=== PATIENT | female | born 1995 | race Caucasian/White ===

== ENCOUNTER 2017-12-28 15:51 | Emergency (ER) | payer OTHER ==
[2017-12-28 16:11] LABS: PLATELET COUNT 297 10^3/uL (150-400)
--- NOTE | 2017-12-28 16:21 | EDPHY ---
H & P Stated Complaint: urology procedure today, at home felt weak/dizzy/near syncope Time Seen by Provider: 12/28/17 16:18 HPI/ROS: CHIEF COMPLAINT: Near syncope HISTORY OF PRESENT ILLNESS: 22-year-old female presents after a near syncopal episode. She had a urologic procedure this morning. She arrived home and was sitting in her room when she began to feel dizzy and weak. Followed by the rapid breathing and a rapid heart rate. The symptoms lasted several minutes and then completely resolved. She is currently asymptomatic. No prior similar symptoms. REVIEW OF SYSTEMS: complete 10 point ROS reviewed and is negative except for the noted elements in the HPI - Medical/Surgical History Hx Asthma: No Hx Chronic Respiratory Disease: No Hx Diabetes: No Hx Cardiac Disease: No Hx Renal Disease: No Hx Cirrhosis: No Hx Alcoholism: No Hx HIV/AIDS: No Hx Splenectomy or Spleen Trauma: No Other PMH: tonsillectomy, narrowed urethra - Social History Smoking Status: Never smoked - Physical Exam Exam: General Appearance: Alert, pleasant Eyes: Pupils equal and round, no conjunctival pallor ENT, Mouth: Mucous membranes moist Neck: Normal inspection Respiratory: Lungs are clear to auscultation Cardiovascular: Regular rate and rhythm Gastrointestinal: Abdomen is soft and nontender Neurological: A&O, nonfocal, normal gait Skin: Warm and dry, no rash Extremities: Nontender, no pedal edema Psychiatric: Mood and affect normal Constitutional: Initial Vital Signs Temperature (C) 37.2 C 12/28/17 15:54 Heart Rate 83 12/28/17 15:54 Respiratory Rate 16 12/28/17 15:54 Blood Pressure 149/91 H 12/28/17 15:54 O2 Sat (%) 97 12/28/17 15:54 O2 Delivery Mode Room Air Allergies/Adverse Reactions: No Known Allergies Allergy (Unverified 12/28/17 15:58) Home Medications: Medication Instructions Recorded NK [No Known Home Meds] 12/28/17 Medical Decision Making - Diagnostics EKG Interpretation: EKG interpreted by me reveals normal sinus rhythm, rate 89, T-wave inversions in leads III and AVF. Interpretation: borderline EKG ED Course/Re-evaluation: This patient presents after a near syncopal episode, most likely vasovagal in nature. I considered primary dysrhythmia, though she was asymptomatic prior to the onset of a rapid heart rate. Stat EKG reveals no evidence of ischemia or dysrhythmia and electronics maintenance technician reveals normal sinus rhythm throughout. Discussed with the patient, understands that a tachyarrhythmia may have occurred. Observation in the emergency department, patient remained asymptomatic. Electrolytes and CBC unremarkable. Will discharge home. Follow- up instructions given. Differential Diagnosis: Differential diagnosis includes though is not limited to cardiac dysrhythmia, CVA, TIA, GI bleed, sepsis, hypoglycemia. - Data Points Laboratory Results: Laboratory Results 12/28/17 16:00 12/28/17 16:00 12/28/17 12/28/17 12/28/17 16:00 16:00 16:00 WBC 10.22 10^3/uL H 10^3/uL (3.80-9.50) RBC 5.35 10^6/uL H 10^6/uL (4.18-5.33) Hgb 16.6 g/dL H g/dL (12.6-16.3) Hct 46.4 % % (38.0-47.0) MCV 86.7 fL fL (81.5-99.8) MCH 31.0 pg pg (27.9-34.1) MCHC 35.8 g/dL g/dL (32.4-36.7) RDW 12.3 % % (11.5-15.2) Plt Count 297 10^3/uL 10^3/uL (150-400) MPV 10.3 fL fL (8.7-11.7) Neut % (Auto) 59.3 % % (39.3-74.2) Lymph % (Auto) 31.3 % % (15.0-45.0) Arthur % (Auto) 8.0 % % (4.5-13.0) Eos % (Auto) 0.7 % % (0.6-7.6) Baso % (Auto) 0.4 % % (0.3-1.7) Nucleat RBC Rel Count 0.0 % % (0.0-0.2) Absolute Neuts (auto) 6.06 10^3/uL 10^3/uL (1.70-6.50) Absolute Lymphs (auto) 3.20 10^3/uL H 10^3/uL (1.00-3.00) Absolute Monos (auto) 0.82 10^3/uL H 10^3/uL (0.30-0.80) Absolute Eos (auto) 0.07 10^3/uL 10^3/uL (0.03-0.40) Absolute Basos (auto) 0.04 10^3/uL 10^3/uL (0.02-0.10) Absolute Nucleated RBC 0.00 10^3/uL 10^3/uL (0-0.01) Immature Gran % 0.3 % % (0.0-1.1) Immature Gran # 0.03 10^3/uL 10^3/uL (0.00-0.10) Sodium 140 mEq/L mEq/L (135-145) Potassium 4.1 mEq/L mEq/L (3.3-5.0) Chloride 105 mEq/L mEq/L (97-110) Carbon Dioxide 21 mEq/l L mEq/l (22-31) Anion Gap 14 mEq/L mEq/L (8-16) BUN 11 mg/dL mg/dL (7-23) Creatinine 0.7 mg/dL mg/dL (0.6-1.0) Estimated GFR > 60 Glucose 89 mg/dL mg/dL (70-100) Calcium 10.2 mg/dL mg/dL (8.5-10.4) Beta HCG, Qual NEGATIVE Departure - Departure Disposition: Home, Routine, Self-Care Clinical Impression: Near syncope Condition: Good Instructions: Near Syncope (ED) Additional Instructions: Drink plenty of fluids. Return for recurrent symptoms or any concerns. Referrals: Marcela Arceo MD [Primary Care Provider] - As per Instructions Stand Alone Forms: School Excuse
[2017-12-28 16:32] VITALS: BP 131/87
--- NOTE | 2017-12-28 20:02 | CPEKG ---
Test Reason : OPEN Blood Pressure : / mmHG Vent. Rate : 089 BPM Atrial Rate : 089 BPM P-R Int : 117 ms QRS Dur : 108 ms QT Int : 370 ms P-R-T Axes : 046 074 -39 degrees QTc Int : 451 ms Sinus rhythm Borderline T abnormalities, inferior leads Confirmed by Deann Nathan ([id number]) on 12/28/2017 8:01:36 PM Referred By: Confirmed By:Deann Nathan
== END 2017-12-28 16:45 | disposition home or self-care (01) ==
LOC: EDUNIT#
DX: R55 Syncope and collapse (principal); Z98.890 Other specified postprocedural states